=== PATIENT | female | born 1990 | race Caucasian/White ===

== ENCOUNTER 2016-08-19 18:57 | Emergency (ER) | payer OTHER | END 2016-08-19 22:30 | disposition home or self-care (01) | LOC: ER1 18:57 | DX: N93.9 Abnormal uterine and vaginal bleeding, unspecified (principal); F17.210 Nicotine dependence, cigarettes, uncomplicated; Z88.0 Allergy status to penicillin; Z88.2 Allergy status to sulfonamides; Z91.040 Latex allergy status | CPT/HCPCS: 81001; 84703; 87086; 87210; 99284 ==

== ENCOUNTER 2021-05-19 10:47 | Emergency (ER) | payer OTHER ==
[2021-05-19 11:17] LABS: HEMOGLOBIN 15.3 gm/dl (12.3-15.3); RED BLOOD COUNT 4.79 M/UL (4.00-5.10); WHITE BLOOD COUNT 9.7 K/UL (4.5-11.0)
[2021-05-19 11:44] LABS: BUN/CREATININE RATIO 15 (0-10)
[2021-05-19] MEDS ORDERED: VISTARIL 50 MG50 MG PO (14:39)
== END 2021-05-19 14:50 | disposition home or self-care (01) ==
LOC: ER1 10:47
DX: R07.89 Other chest pain (principal); F41.9 Anxiety disorder, unspecified; R06.02 Shortness of breath; F17.200 Nicotine dependence, unspecified, uncomplicated
CPT/HCPCS: 71045; 80053; 82550; 82553; 84484; 84703; 85025; 85379; 93005; 99285; Q0177